=== PATIENT | male | born 1990 | race American Indian/Alaskan Native ===

== ENCOUNTER 2016-08-07 06:52 | Emergency (ER) | payer OTHER ==
[2016-08-07] MEDS ORDERED: NACL 0.9% 1000 ML 1,000 ML IV ONE (07:29)
[2016-08-07] MEDS ORDERED: KETALAR IV ONE (07:29)
[2016-08-07] MEDS ORDERED: DIPRIVAN 10 MG/ML IV ONE (07:30)
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
--- NOTE | 2016-08-07 09:18 | XRay Report ---
Left shoulder single view: History: Status post reduction. Findings: There is satisfactory alignment noted of the humeral head with glenoid. No fracture. A.c. joint appears unremarkable. Impression: Satisfactory alignment of glenohumeral head.
--- NOTE | 2016-08-07 09:20 | XRay Report ---
Single view left shoulder: History: Left shoulder dislocation. Findings: There is anterior dislocation noted left shoulder. The humeral head is in to inferior to the glenoid. No fracture. A.c. joint appears unremarkable. Impression: Anterior dislocation left shoulder.
[2016-08-07 12:34] VITALS: BP 106/71
== END 2016-08-07 08:40 | disposition home or self-care (01) ==
LOC: ED 06:52
DX: S43.315A Dislocation of left scapula, initial encounter (principal); X58.XXXA Exposure to other specified factors, initial encounter; Y93.89 Activity, other specified; Y92.89 Other specified places as the place of occurrence of the external cause; Y99.8 Other external cause status; F17.200 Nicotine dependence, unspecified, uncomplicated
CPT/HCPCS: 23655; 73020; 96374; 99285; J2704; J7030

== ENCOUNTER 2017-01-17 06:46 | Emergency (ER) | payer OTHER | END 2017-01-17 06:49 | disposition left against medical advice (07) | LOC: ED 06:46 | DX: S43.006A Unspecified dislocation of unspecified shoulder joint, initial encounter (principal); Z53.21 Procedure and treatment not carried out due to patient leaving prior to being seen by health care provider ==